=== PATIENT | female | born 1970 | race Caucasian/White ===

== ENCOUNTER 2017-08-15 13:38 | Emergency (ER) | payer SELFPAY ==
[~2017-08-15] VITALS: Ht 157.5 cm; Wt 97.7 kg
[~2017-08-15 13:38] MED LIST: FLAGYL; LORTAB PO; METICORTEN1 MG PO; MOBIC 7.5MG7.5 MG PO; NORCO 325 MG-51 TAB PO; PAXIL 10MG10 MG PO; PAXIL PO; PERCOCET 325 MG1 TA2 PO; PHENERGAN 25 TA25 MG PO; PHENERGAN25 MG RC; ULTRAM 50MG TAB50 MG PO; ULTRAM50 MG PO; WELCHOL625 MG PO; ZOFRAN8 MG PO; [UNRECOGNIZED DRUG - OTHER]; [UNRECOGNIZED DRUG - REMARK]
[2017-08-15 13:46] VITALS: TEMP 98.3
[2017-08-15] MEDS ORDERED: MIRALAX PA17 GM/Dose PO (15:42)
[2017-08-15] MEDS ORDERED: ULTRAM 50MG TAB50 MG PO (15:54)
[2017-08-15] MEDS ORDERED: ATIVAN 1MG T1 MG/TAB PO (15:54)
[2017-08-15 16:37] VITALS: BP 124/63; PULSE 74
== END 2017-08-15 16:43 | disposition home or self-care (01) ==
LOC: COL.ER 13:38
DX: N76.4 Abscess of vulva (principal)

== ENCOUNTER 2018-09-28 08:52 | Emergency (ER) | payer BC ==
[~2018-09-28] VITALS: Ht 157.5 cm; Wt 79.5 kg
[~2018-09-28 08:52] MED LIST changes: +ATIVAN 1MG T1 MG/TAB PO; +MIRALAX PA17 GM/Dose PO
[2018-09-28 08:55] VITALS: BP 123/70; TEMP 97.4
[2018-09-28 09:48] LABS: COLLECTION METHOD CLEAN CATCH
[2018-09-28 09:52] LABS: BASO # 0.1 (0.0-0.2); BASO % 0.6 % (0.0-2.0); EOS # 0.1 (0.0-0.7); EOS % 1.2 % (0-4.0); GRAN # 7.3 (1.4-6.5); GRAN % 63.6 % (42.2-75.2); HEMOGLOBIN 14.4 g/dl (12.5-16.0); LYMPH # 3.2 (1.2-3.4); LYMPH % 27.5 % (20.0-51.0); MEAN CELL VOLUME 91 fl (80.0-100.0); MEAN CORPUSCULAR HEMOGLOBIN 29 pg (27.0-31.0); MEAN CORPUSCULAR HGB CONC 32 g/dl (33.0-37.0); MEAN PLATELET VOLUME 10.7 fl (7.4-10.4); MONO # 0.8 (0.1-0.6); MONO % 6.7 % (1.7-9.3); PLATELET COUNT 321 K/mm3 (130-400); RED BLOOD COUNT 4.93 M/mm3 (4.10-5.30); REDCELL DISTRIBUTION WIDTH-CV 12.8 % (11.5-14.5)
[2018-09-28 10:03] LABS: MUCOUS Present /lpf; PH 5 (5-8); SQUAMOUS EPITHELIAL 0-2 /hpf; URINE APPEARANCE Cloudy; URINE BACTERIA None Seen /hpf; URINE BILIRUBIN Negative (NEGATIVE); URINE BLOOD Negative (NEGATIVE); URINE COLOR Amber; URINE GLUCOSE Negative (NEGATIVE); URINE KETONE Negative (NEGATIVE); URINE LEUKOCYTE ESTERASE Negative (NEGATIVE); URINE NITRATE Negative (NEGATIVE); URINE PROTEIN(semi-quant) Negative (NEGATIVE); URINE RBC None Seen /hpf; URINE UROBILINOGEN Negative (NEGATIVE)
[2018-09-28 10:11] LABS: ALBUMIN 3.8 gm/dL (3.5-5.0); BILIRUBIN,TOTAL 0.3 mg/dL (0.0-1.0); C-REACTIVE PROTEIN 1.2 mg/dL (0.0-0.9); CALCIUM 8.8 mg/dL (8.4-10.2); CREATININE, serum 0.65 (0.52-1.25); POTASSIUM 4.1 mmol/L (3.4-5.0); TOTAL PROTEIN 6.8 gm/dL (6.4-8.2)
[2018-09-28] MEDS ORDERED: ZOFRAN ODT4 MG PO (13:42)
[2018-09-28] MEDS ORDERED: NORCO 325 MG-51 TAB PO (13:42)
[2018-09-28 14:10] VITALS: PULSE 75
== END 2018-09-28 14:10 | disposition home or self-care (01) ==
LOC: COL.ER 08:52
PROVIDERS: Nurse Practitioner
DX: R10.30 Lower abdominal pain, unspecified (principal); K50.90 Crohn's disease, unspecified, without complications; F17.210 Nicotine dependence, cigarettes, uncomplicated; Z88.0 Allergy status to penicillin; Z88.5 Allergy status to narcotic agent; Z90.710 Acquired absence of both cervix and uterus; Z90.49 Acquired absence of other specified parts of digestive tract
CPT/HCPCS: J2270; J2405; J7030; Q9967

== ENCOUNTER → 2018-10-16 | Outpatient (CLI) | payer BC ==
[~2018-10-16] MED LIST changes: +ZOFRAN ODT4 MG PO
== END ==
LOC: COL.RAD 07:10
DX: D18.03 Hemangioma of intra-abdominal structures (principal); K76.9 Liver disease, unspecified
CPT/HCPCS: A9585

== ENCOUNTER 2020-06-05 06:24 | Day surgery (SDC) | payer BC ==
[~2020-06-05] VITALS: Ht 157.5 cm; Wt 70.2 kg
[2020-06-05 06:49] VITALS: BP 100/68; PULSE 79; TEMP 97.5
[2020-06-05] MEDS ORDERED: NATURAL POTASS595 MG PO (07:09)
[2020-06-05] MEDS ORDERED: STOOL SOFTENER100 M2 PO (07:09)
[2020-06-05] MEDS ORDERED: MASON NATURAL2000 IU PO (07:10)
[2020-06-05 09:00] VITALS: BP 104/59; PULSE 72; TEMP 97.3
--- NOTE | 2020-06-05 09:00 | NUR ---
Patient arrives back to [facility] alert, denies pain or nausea. Patient ambulated from cart to chair with stand-by assist. Patient monitor applied, vitals stable. Patient given juice and muffin. Patient's spouse at bedside.
[2020-06-05 09:15] VITALS: BP 110/76; PULSE 68
--- NOTE | 2020-06-05 09:15 | NUR ---
Dr Velez into see patient at this time to go over results. Vitals stable, patient tolerating food and drink without any nausea.
[2020-06-05 09:30] VITALS: BP 112/64; PULSE 65
--- NOTE | 2020-06-05 09:35 | NUR ---
Dismissal instructions gone over with patient and patient's spouse. Both verbalize understanding and all questions answered.
--- NOTE | 2020-06-05 09:50 | NUR ---
Patient discharge to private vehilce at patient enterance that spouse is driving. Patient and spouse leave thanking staff for services.
== END 2020-06-05 09:50 | disposition home or self-care (01) ==
LOC: SDCO 06:24
DX: K50.00 Crohn's disease of small intestine without complications (principal); K29.31 Chronic superficial gastritis with bleeding; K31.89 Other diseases of stomach and duodenum; K44.9 Diaphragmatic hernia without obstruction or gangrene; K63.3 Ulcer of intestine; K56.699 Other intestinal obstruction unspecified as to partial versus complete obstruction; Z20.822 Contact with and (suspected) exposure to COVID-19; Z88.8 Allergy status to other drugs, medicaments and biological substances; Z88.0 Allergy status to penicillin
CPT/HCPCS: J2704; J7030

== ENCOUNTER 2022-05-09 04:19 | Emergency (ER) | payer OTHER ==
[~2022-05-09] VITALS: Ht 157.5 cm; Wt 63.6 kg
[~2022-05-09 04:19] MED LIST changes: +MASON NATURAL2000 IU PO; +NATURAL POTASS595 MG PO; +STOOL SOFTENER100 M2 PO
[2022-05-09 04:28] VITALS: TEMP 97.5
[2022-05-09 05:07] LABS: COLLECTION METHOD CLEAN CATCH
[2022-05-09 05:09] LABS: BASO # 0.1 K/mm3 (0.0-0.2); BASO % 0.7 % (0.0-2.0); EOS # 0.2 K/mm3 (0.0-0.7); EOS % 2.2 % (0.0-4.0); GRAN # 5.6 K/mm3 (1.4-6.5); GRAN % 58.2 % (42.2-75.2); HEMATOCRIT 42.3 % (37.0-47.0); HEMOGLOBIN 13.7 g/dl (12.5-16.0); LYMPH % 30.8 % (20.0-51.0); MEAN CELL VOLUME 89 fl (80.0-100.0); MEAN CORPUSCULAR HEMOGLOBIN 29 pg (27-31); MEAN CORPUSCULAR HGB CONC 32 g/dl (33.0-37.0); MEAN PLATELET VOLUME 10.1 fl (7.4-10.4); MONO # 0.8 K/mm3 (0.1-0.6); MONO % 7.8 % (1.7-9.3); PLATELET COUNT 373 K/mm3 (130-400); RED BLOOD COUNT 4.73 M/mm3 (4.10-5.30); REDCELL DISTRIBUTION WIDTH-CV 12.1 % (11.5-14.5)
[2022-05-09 05:13] LABS: URINE APPEARANCE Clear (CLEAR/HAZY); URINE BACTERIA Rare /hpf (NONE SEEN); URINE BLOOD Negative (NEGATIVE); URINE COLOR Yellow (YELLOW); URINE GLUCOSE Negative (NEGATIVE); URINE KETONE Negative (NEGATIVE); URINE NITRATE Negative (NEGATIVE); URINE PROTEIN(semi-quant) Negative (NEGATIVE); URINE RBC 0-2 /hpf (0-2); URINE UROBILINOGEN 0.2 E.U/dL (0.2-1.0)
[2022-05-09 05:26] LABS: ALANINE AMINOTRANSFERASE 9 U/L (0-55); ALBUMIN 3.8 gm/dL (3.5-5.0); ALKALINE PHOSPHATASE 69 U/L (40-150); ANION GAP 11 mmol/L (7-16); AST,SGOT 15 U/L (5-34); BILIRUBIN,TOTAL 0.2 mg/dL (0.2-1.2); BLOOD UREA NITROGEN 16 mg/dL (10-20); CALCIUM 9.2 mg/dL (8.4-10.2); CARBON DIOXIDE 23 mmol/L (22-29); CHLORIDE 106 mmol/L (98-107); CREATININE, serum 0.72 mg/dL (0.57-1.11); GLUCOSE 96 mg/dL (70-99); LIPASE 72 U/L (8-78); POTASSIUM 4.1 mmol/L (3.5-4.5); SODIUM 140 mmol/L (136-145); TOTAL PROTEIN 6.8 gm/dL (6.2-8.1)
[2022-05-09 05:35] LABS: TROPONIN-I < 0.010 ng/mL (0.00-0.033)
[2022-05-09] MEDS ORDERED: BENTYL 10MG10 MG/CAP PO (06:11)
[2022-05-09] MEDS ORDERED: NORCO 325 MG-51 TAB PO (06:11)
[2022-05-09] MEDS ORDERED: ZOFRAN ODT4 MG PO (06:11)
[2022-05-09 07:15] VITALS: BP 116/82; PULSE 74
== END 2022-05-09 07:15 | disposition home or self-care (01) ==
LOC: COL.ER 04:19
PROVIDERS: Emergency Medicine
DX: K50.90 Crohn's disease, unspecified, without complications (principal); K38.8 Other specified diseases of appendix; Z90.49 Acquired absence of other specified parts of digestive tract; Z28.310 Unvaccinated for COVID-19
CPT/HCPCS: J1170; J2270; J2405; J7120; Q9967

== ENCOUNTER → 2023-01-18 | Outpatient (CLI) | payer OTHER ==
[~2023-01-18] MED LIST changes: +BENTYL 10MG10 MG/CAP PO
== END ==
LOC: MC.RAD 09:43
DX: Z12.31 Encounter for screening mammogram for malignant neoplasm of breast (principal)

== ENCOUNTER → 2024-01-22 | Outpatient (CLI) | payer OTHER | LOC: MC.RAD 12:49 | DX: Z12.31 Encounter for screening mammogram for malignant neoplasm of breast (principal) ==